=== PATIENT | female | born 1935 | race Caucasian/White ===

== ENCOUNTER 2019-12-04 07:11 | Day surgery (SDC) | payer MEDICARE, BC ==
[2019-12-04] VITALS (12 sets, daily range): BP systolic 140–177; BP diastolic 52–68; PULSE 58–72; TEMP 97.1
[~2019-12-04] VITALS: Ht 165.2 cm; Wt 83.1 kg
[~2019-12-04 07:11] MED LIST: ASPIRIN 81M81 MG/TA2 PO; CELEBREX 200MG200 MG PO; FISH OIL 1000MG1 CAP PO; NEURONTIN800 MG/TAB PO; NORCO 325 MG-7.1 TAB PO; NORVASC 5MG5 MG/TAB PO; PRILOSEC 20MG20 MG PO; TOPROL XL 50MG50 MG PO
[2019-12-04] MEDS ORDERED: SYNTHROID0.075 MG/T PO (07:25)
[2019-12-04] MEDS ORDERED: MULTI VITAMINS1 TAB PO (07:25)
[2019-12-04] MEDS ORDERED: ALTACE 2.5MG T2.5 MG PO (07:27)
[2019-12-04] MEDS ORDERED: TYLENOL 500MG500 MG PO (07:30)
[2019-12-04 07:57] LABS: HEMATOCRIT 37.6 % (37.0-47.0); HEMOGLOBIN 11.8 g/dl (12.5-16.0); MEAN CELL VOLUME 101 fl (80.0-100.0); MEAN CORPUSCULAR HEMOGLOBIN 32 pg (27.0-31.0); MEAN CORPUSCULAR HGB CONC 31 g/dl (33.0-37.0); MEAN PLATELET VOLUME 10.3 fl (7.4-10.4); PLATELET COUNT 166 K/mm3 (130-400); RED BLOOD COUNT 3.71 M/mm3 (4.10-5.30); REDCELL DISTRIBUTION WIDTH-CV 13.2 % (11.5-14.5)
[2019-12-04 08:02] LABS: PROTHROMBIN TIME 11.4 SECONDS (9.7-12.8)
[2019-12-04] MEDS ORDERED: MOBIC 7.5MG7.5 MG PO (08:05)
[2019-12-04 08:09] LABS: CALCIUM 9.3 mg/dL (8.4-10.2); CREATININE, serum 0.88 (0.52-1.25); POTASSIUM 4.5 mmol/L (3.4-5.0)
[2019-12-04] MEDS ORDERED: NORVASC 5MG5 MG/TAB PO (10:48)
== END 2019-12-04 14:49 | disposition home or self-care (01) ==
LOC: COL.CAR 07:11
PROVIDERS: Internal Medicine Cardiovascular Disease
DX: I20.0 Unstable angina (principal); R94.39 Abnormal result of other cardiovascular function study; I47.1 Supraventricular tachycardia; G43.909 Migraine, unspecified, not intractable, without status migrainosus; K21.9 Gastro-esophageal reflux disease without esophagitis; I10 Essential (primary) hypertension; I34.0 Nonrheumatic mitral (valve) insufficiency; Z88.0 Allergy status to penicillin; Z88.8 Allergy status to other drugs, medicaments and biological substances; Z85.038 Personal history of other malignant neoplasm of large intestine
CPT/HCPCS: C1760; C1769; C1894; J1644; J2250; J3010; Q9967

== ENCOUNTER → 2020-03-19 | Outpatient (CLI) | payer MEDICARE, BC ==
[~2020-03-19] MED LIST changes: +ALTACE 2.5MG T2.5 MG PO; +MOBIC 7.5MG7.5 MG PO; +MULTI VITAMINS1 TAB PO; +SYNTHROID0.075 MG/T PO; +TYLENOL 500MG500 MG PO
== END ==
LOC: COL.VAS 14:58
DX: I08.0 Rheumatic disorders of both mitral and aortic valves (principal)

== ENCOUNTER 2020-09-24 17:17 | Inpatient (IN) | payer MEDICARE, BC ==
[~2020-09-24] VITALS: Ht 160 cm; Wt 81.0 kg
[2020-09-24] VITALS (10 sets, daily range): BP systolic 188; BP diastolic 97; PULSE 78; TEMP 97.9; O2SAT 99–100
[2020-09-24 18:33] LABS: BASO % 0.4 % (0.0-2.0); EOS # 0.2 (0.0-0.7); EOS % 3.3 % (0-4.0); GRAN # 2.6 (1.4-6.5); GRAN % 56.2 % (42.2-75.2); HEMOGLOBIN 11.3 g/dl (12.5-16.0); LYMPH # 1.4 (1.2-3.4); LYMPH % 30.4 % (20.0-51.0); MEAN CELL VOLUME 97 fl (80.0-100.0); MEAN CORPUSCULAR HEMOGLOBIN 31 pg (27.0-31.0); MEAN CORPUSCULAR HGB CONC 32 g/dl (33.0-37.0); MEAN PLATELET VOLUME 10.1 fl (7.4-10.4); MONO # 0.4 (0.1-0.6); MONO % 9.5 % (1.7-9.3); PLATELET COUNT 167 K/mm3 (130-400); RED BLOOD COUNT 3.64 M/mm3 (4.10-5.30); REDCELL DISTRIBUTION WIDTH-CV 13.6 % (11.5-14.5)
[2020-09-24 18:34] LABS: HEMATOCRIT 35.2 % (37.0-47.0)
[2020-09-24 18:44] LABS: INR 1.1 (0.8-3.0); PROTHROMBIN TIME 12.1 SECONDS (9.7-12.8)
[2020-09-24 18:58] LABS: ALBUMIN 3.6 gm/dL (3.5-5.0); BILIRUBIN,TOTAL 0.5 mg/dL (0.0-1.0); CALCIUM 9.3 mg/dL (8.4-10.2); CREATININE, serum 0.96 (0.52-1.25); POTASSIUM 4.5 mmol/L (3.4-5.0); TOTAL PROTEIN 6.3 gm/dL (6.4-8.2)
[2020-09-24 19:11] LABS: TROPONIN-I 0.161 ng/mL (0.000-0.035)
[2020-09-24 21:05] LABS: COLLECTION METHOD CLEAN CATCH
[2020-09-24 21:11] LABS: MUCOUS Present /lpf; PH 6 (5-8); SQUAMOUS EPITHELIAL None Seen /hpf; URINE APPEARANCE Clear; URINE BACTERIA None Seen /hpf; URINE BILIRUBIN Negative (NEGATIVE); URINE BLOOD Negative (NEGATIVE); URINE COLOR Straw; URINE GLUCOSE Negative (NEGATIVE); URINE KETONE Negative (NEGATIVE); URINE LEUKOCYTE ESTERASE Negative (NEGATIVE); URINE NITRATE Negative (NEGATIVE); URINE PROTEIN(semi-quant) Negative (NEGATIVE); URINE RBC 0-2 /hpf; URINE UROBILINOGEN Negative (NEGATIVE); URINE WBC 0-2 /hpf
[2020-09-24] MEDS ORDERED: PLAVIX 75MG TAB75 MG PO (22:00)
[2020-09-24] MEDS ORDERED: ALTACE 5MG5 MG PO (22:01)
--- NOTE | 2020-09-24 22:20 | NUR ---
PT ARRIVED TO ICU 07 AT THIS TIME VIA CART WITH ED NURSE. PT ABLE TO TRANSFER FROM THE CART TO ICU BED SBA. PT ORIENTED TO ROOM AND CALL LIGHT SYSTEM. WILL COMPLETE ASSESSMENT. PT STATES SHE CONTINUES TO HAVE CHEST PAIN RATED AT A 4/10 THAT RADIATES TO HER BACK AND SHOULDER. CALL LIGHT WITHIN REACH, WILL CONTINUE TO MONITOR.
[2020-09-25] VITALS (706 sets, daily range): BP systolic 100–209; BP diastolic 52–96; PULSE 60–99; TEMP 97.7–98.1; O2SAT 76–100
[2020-09-25 04:48] LABS: BASO % 0.6 % (0.0-2.0); EOS # 0.1 (0.0-0.7); EOS % 2.9 % (0-4.0); GRAN # 2.8 (1.4-6.5); HEMOGLOBIN 10.7 g/dl (12.5-16.0); LYMPH # 1.5 (1.2-3.4); LYMPH % 30.3 % (20.0-51.0); MEAN CELL VOLUME 96 fl (80.0-100.0); MEAN CORPUSCULAR HEMOGLOBIN 31 pg (27.0-31.0); MEAN CORPUSCULAR HGB CONC 33 g/dl (33.0-37.0); MEAN PLATELET VOLUME 10.5 fl (7.4-10.4); MONO # 0.4 (0.1-0.6); PLATELET COUNT 170 K/mm3 (130-400); RED BLOOD COUNT 3.44 M/mm3 (4.10-5.30); REDCELL DISTRIBUTION WIDTH-CV 13.8 % (11.5-14.5); TROPONIN-I 0.226 ng/mL (0.000-0.035)
[2020-09-25 04:50] LABS: HEMATOCRIT 32.9 % (37.0-47.0)
[2020-09-25 04:54] LABS: CREATININE, serum 0.81 (0.52-1.25); POTASSIUM 4.1 mmol/L (3.4-5.0)
--- NOTE | 2020-09-25 09:58 | NUR ---
Dr. Elliott at bedside speaking with pt.
--- NOTE | 2020-09-25 11:05 | NUR ---
D/T PT'S HEP XA LEVEL AT GOAL, NO TIRATION REQUIRED TO CURRENT HEPARIN RATE. HEPARIN GTT REMAINS AT 8.5 ML/HR.
--- NOTE | 2020-09-25 15:36 | NUR ---
Ambulance Mechanic met with patient to discuss discharge planning. Patient lives alone in [place] and sees Dr. Ramirez for primary care. Patient has medications mailed to her by [facility] and also utilizes [facility] in [place] as needed. Patient has a cane and walker at home. Patient states she is now independent with ADLS after having some Home Health services in her home a while back. Patient could not think of the name of the agency but thought they were out of [place]. Patient has Advance Directives in EMR which designate her son, Vincent (ph#[phone]) as DPOA-HC. Juliane Escoto and Magen Pfeiffer are listed as alternates. Patient states she plans to return home upon discharge. PT has been ordered for patient. SW contacted patient's son, Vincent to review discharge plan. Vincent advised that he has been trying to convince patient to move into an assisted living but that she is not interested in this. SW will continue to follow for discharge needs.
--- NOTE | 2020-09-25 16:23 | NUR ---
PT'S NITRO GTT OFF AT THIS TIME PER DR. RUIZ REQUEST. BP 145/55 HR 76. PT DENIES CP.
--- NOTE | 2020-09-25 18:00 | NUR ---
PT'S HEP XA REMAINS WITHIN GOAL RANGE. NO CHANGE REQUIRED TO CURRENT RATE. HEPARIN GTT REMAINS RUNNING AT 8.5 ML/HR.
--- NOTE | 2020-09-25 18:15 | NUR ---
PT REPORTS SUDDEN ONSET SHARP CP TO MID CHEST. BP ELEVATED AT 188/79, HR 89. CONTACTED RT FOR EKG. DI MERCEDES NOTIFIED OF CP. ORDERS FOR TROPONIN AND EKG GIVEN.
--- NOTE | 2020-09-25 18:33 | NUR ---
CONTACTED PHARMACY TO MIX CARDENE GTT TO BE SENT TO ICU.
--- NOTE | 2020-09-25 20:00 | NUR ---
Assessment complete. Pt is AXO X3, states she has chest pain rated at a 3/10. Breathing is even and unlabored on room air. LH IV and LA IV are infusing free of complications. Pt is resting quielty in the bed at this time and she denies further needs. Call light within reach, will continue to monitor.
[2020-09-26] VITALS (571 sets, daily range): BP systolic 117–200; BP diastolic 46–77; PULSE 61–81; TEMP 98–98.4; O2SAT 68–100
[2020-09-26 06:33] LABS: BASO % 0.7 % (0.0-2.0); EOS # 0.2 (0.0-0.7); GRAN # 2.3 (1.4-6.5); GRAN % 52.7 % (42.2-75.2); HEMOGLOBIN 10.8 g/dl (12.5-16.0); LYMPH # 1.4 (1.2-3.4); LYMPH % 32.5 % (20.0-51.0); MEAN CELL VOLUME 95 fl (80.0-100.0); MEAN CORPUSCULAR HEMOGLOBIN 31 pg (27.0-31.0); MEAN CORPUSCULAR HGB CONC 33 g/dl (33.0-37.0); MEAN PLATELET VOLUME 10.6 fl (7.4-10.4); MONO # 0.4 (0.1-0.6); MONO % 8.9 % (1.7-9.3); PLATELET COUNT 163 K/mm3 (130-400); RED BLOOD COUNT 3.45 M/mm3 (4.10-5.30); REDCELL DISTRIBUTION WIDTH-CV 13.8 % (11.5-14.5)
[2020-09-26 06:37] LABS: HEMATOCRIT 32.9 % (37.0-47.0)
[2020-09-26 06:45] LABS: CREATININE, serum 0.83 (0.52-1.25)
--- NOTE | 2020-09-26 07:00 | NUR ---
RECEIVED REPORT FROM FERN MORENO. PT SLEEPING. CALL LIGHT WITHIN REACH. VSS.
--- NOTE | 2020-09-26 08:30 | NUR ---
SPOKE WITH DR RUIZ ABOUT POC AND PT'S BPs. NEW ORDERS RECEIVED. SEE MAR FOR MED CHANGES.
--- NOTE | 2020-09-26 13:00 | NUR ---
SPOKE WITH DR RUIZ ABOUT PT'S BP HAS INCREASED EVEN AFTER MORNING MEDS GIVEN. PHYSICIAN STATES TO START PT BACK ON CARDENE GTT. SEE MAR.
--- NOTE | 2020-09-26 20:00 | NUR ---
Assessment complete. Pt is AXO X3, states she has a headache rated a 5/10. Breathing is even and unlabored on room air. LA IV infusing free of complications. Pt is resting quietly in the bed watching TV at this time and she denies further needs. Call light within reach, will continue to monitor.
[2020-09-27] VITALS (385 sets, daily range): BP systolic 80–159; BP diastolic 34–73; PULSE 50–77; TEMP 97.7–98.4; O2SAT 69–100
--- NOTE | 2020-09-27 07:00 | NUR ---
RECEIVED REPORT FROM FERN MORENO. PT SLEEPING IN BED. ON RA. VSS. CALL LIGHT WITHIN REACH.
[2020-09-27 08:34] LABS: BASO % 0.8 % (0.0-2.0); EOS # 0.3 (0.0-0.7); EOS % 6.9 % (0-4.0); GRAN # 1.8 (1.4-6.5); GRAN % 47.2 % (42.2-75.2); HEMOGLOBIN 10.9 g/dl (12.5-16.0); LYMPH # 1.3 (1.2-3.4); LYMPH % 33.6 % (20.0-51.0); MEAN CELL VOLUME 96 fl (80.0-100.0); MEAN CORPUSCULAR HEMOGLOBIN 31 pg (27.0-31.0); MEAN CORPUSCULAR HGB CONC 32 g/dl (33.0-37.0); MEAN PLATELET VOLUME 10.4 fl (7.4-10.4); MONO # 0.4 (0.1-0.6); MONO % 11.2 % (1.7-9.3); PLATELET COUNT 166 K/mm3 (130-400); RED BLOOD COUNT 3.53 M/mm3 (4.10-5.30); REDCELL DISTRIBUTION WIDTH-CV 13.9 % (11.5-14.5)
[2020-09-27 08:48] LABS: CALCIUM 9.1 mg/dL (8.4-10.2); CREATININE, serum 0.89 (0.52-1.25); POTASSIUM 4.1 mmol/L (3.4-5.0)
--- NOTE | 2020-09-27 13:01 | NUR ---
NOTIFIED DR RUIZ ABOUT PT'S HR DROPPING TO 49, DISCUSSED MEDS, NO NEW CHANGES. PHYSICIAN STATES TO CONTINUE TO MONITOR.
--- NOTE | 2020-09-27 13:10 | NUR ---
DR RUIZ AT BEDSIDE FOR ASSESSMENT. DR RUIZ NOTED TO RN THAT PCR COVID TEST IS NEGATIVE AND PT CAN COME OFF PRECAUTIONS AT THIS TIME. PT UPDATED.
--- NOTE | 2020-09-27 20:00 | NUR ---
Assessment complete. Pt is AXO X3. Breathing is even and unlabored on room air. LA INT and LH INT both flush easily and remain free of complications. Pt is assisted to the restroom and helped back into bed at this time and she denies further needs. Call light within reach, will continue to monitor.
[2020-09-28] VITALS: BP 124/40; PULSE 60; TEMP 98
[2020-09-28 04:00] VITALS: BP 122/53; PULSE 58; TEMP 98.1
[2020-09-28 05:55] LABS: BASO % 0.5 % (0.0-2.0); EOS # 0.3 (0.0-0.7); EOS % 7.1 % (0-4.0); GRAN % 46.7 % (42.2-75.2); HEMOGLOBIN 11.1 g/dl (12.5-16.0); LYMPH # 1.6 (1.2-3.4); LYMPH % 35.6 % (20.0-51.0); MEAN CELL VOLUME 96 fl (80.0-100.0); MEAN CORPUSCULAR HEMOGLOBIN 31 pg (27.0-31.0); MEAN CORPUSCULAR HGB CONC 32 g/dl (33.0-37.0); MEAN PLATELET VOLUME 10.2 fl (7.4-10.4); MONO # 0.4 (0.1-0.6); MONO % 9.9 % (1.7-9.3); PLATELET COUNT 173 K/mm3 (130-400); REDCELL DISTRIBUTION WIDTH-CV 13.9 % (11.5-14.5)
[2020-09-28 05:59] LABS: HEMATOCRIT 34.6 % (37.0-47.0)
[2020-09-28 06:09] LABS: CALCIUM 9.3 mg/dL (8.4-10.2); CREATININE, serum 0.92 (0.52-1.25); POTASSIUM 4.2 mmol/L (3.4-5.0)
[2020-09-28 08:00] VITALS: BP 168/75; PULSE 60; TEMP 98
--- NOTE | 2020-09-28 10:02 | NUR ---
Initial visit; Patient thanked Lotteries Agent for looking in on her and for keeping her in Lotter[employer] Agent's prayers. Patient is hoping to go home soon.
--- NOTE | 2020-09-28 10:19 | NUR ---
Mail Handler Assistant collaborated with TERESO Varner who is recommending Home Health services for patient. SW followed up with patient and provided Medicare.gov list of HH agencies that serve [place]. Patient states she had a provider out of [place] that she was private paying for. Patient states she did not like the PT provided by the [place] provider. SUSAN will send referral once patient makes selection of HH agency.
--- NOTE | 2020-09-28 10:56 | NUR ---
Patient selected [facility]. SW faxed referral.
--- NOTE | 2020-09-28 11:57 | NUR ---
prayed with patient, no other needs right now.
[2020-09-28 12:00] VITALS: BP 139/57; PULSE 58; TEMP 98.4
--- NOTE | 2020-09-28 12:21 | NUR ---
Cutter Operator Helper was contacted by Jud at [facility] and they do not serve [place]. SUSAN followed up with patient who would like to have referral sent to [facility]. SW faxed referral.
[2020-09-28] MEDS ORDERED: MONODOX100 PO (12:51)
[2020-09-28] MEDS ORDERED: OMNICEF 300MG300 MG PO (12:51)
[2020-09-28] MEDS ORDERED: ALTACE 10MG TAB10 MG PO (12:53)
[2020-09-28] MEDS ORDERED: PROCARDIA20 MG PO (13:09)
--- NOTE | 2020-09-28 13:56 | NUR ---
Marine Engineering Teacher was notified by Hospitalist that patient is going to be discharged home today. SUSAN contacted Allyson at [facility] and they will accept patient for services. SUSAN faxed discharge orders. SUSAN met with patient who is in agreement with discharge home with [facility]. Patient states her son Vincent is going to pick her up and will be staying with her a couple days. No additional needs at this time.
--- NOTE | 2020-09-28 15:20 | NUR ---
PT HELPED INTO STREET CLOTHES AND PLACED IN WC AFTER DC PAPERWORK GIVEN. A 60DAY SUPPLY OF PROCARDIA XL GIVEN TO PT UNTIL HOME RX IS ABLE TO WORK WITH INSURANCE TO GET AT HOME. ALL PERSONAL BELONGINGS SENT HOME WITH PT. PT SENT HOME WITH SON XANDER.
== END 2020-09-28 15:20 | disposition home health service (06) | DRG 280 ==
LOC: COL.ER 17:17 → ICU 21:10
PROVIDERS: Nurse Practitioner Primary Care; Physician Assistant; Student in an Organized Health Care Education/Training Program; ADMIT Hospitalist
DX: I16.1 Hypertensive emergency (principal); I21.A1 Myocardial infarction type 2; J18.9 Pneumonia, unspecified organism; E03.9 Hypothyroidism, unspecified; I10 Essential (primary) hypertension; K21.9 Gastro-esophageal reflux disease without esophagitis; I08.0 Rheumatic disorders of both mitral and aortic valves; I69.912 Visuospatial deficit and spatial neglect following unspecified cerebrovascular disease; G62.9 Polyneuropathy, unspecified; Z20.822 Contact with and (suspected) exposure to COVID-19; S01.311A Laceration without foreign body of right ear, initial encounter; G43.909 Migraine, unspecified, not intractable, without status migrainosus; X58.XXXA Exposure to other specified factors, initial encounter; R79.89 Other specified abnormal findings of blood chemistry; Z79.02 Long term (current) use of antithrombotics/antiplatelets; Z79.82 Long term (current) use of aspirin; Z79.891 Long term (current) use of opiate analgesic; Z95.818 Presence of other cardiac implants and grafts; Z90.710 Acquired absence of both cervix and uterus; Z88.0 Allergy status to penicillin; Z85.3 Personal history of malignant neoplasm of breast; Z85.038 Personal history of other malignant neoplasm of large intestine; Z88.8 Allergy status to other drugs, medicaments and biological substances
CPT/HCPCS: 99223-AI; 99233-AI; 99239; J0696; J1644; J2270; J7050; Q9967

== ENCOUNTER 2021-04-09 14:09 | Day surgery (SDC) | payer MEDICARE, BC ==
[~2021-04-09] VITALS: Ht 160 cm; Wt 74.8 kg
[~2021-04-09 14:09] MED LIST changes: +ALTACE 10MG TAB10 MG PO; +ALTACE 5MG5 MG PO; +MONODOX100 PO; +OMNICEF 300MG300 MG PO; +PLAVIX 75MG TAB75 MG PO; +PROCARDIA20 MG PO
[2021-04-09 14:57] LABS: INR 1.1 (0.8-3.0); PROTHROMBIN TIME 12.5 SECONDS (9.7-12.8)
[2021-04-09 14:58] LABS: CALCIUM 9.5 mg/dL (8.4-10.2); CREATININE, serum 1.29 (0.52-1.25); POTASSIUM 4.2 mmol/L (3.4-5.0)
[2021-04-09 15:05] VITALS: BP 116/68; PULSE 60; TEMP 98.6
[2021-04-09 15:09] LABS: BASO % 0.8 % (0.0-2.0); EOS # 0.1 (0.0-0.7); EOS % 2.5 % (0-4.0); GRAN # 2.4 (1.4-6.5); LYMPH # 1.7 (1.2-3.4); MEAN CELL VOLUME 100 fl (80.0-100.0); MEAN CORPUSCULAR HGB CONC 31 g/dl (33.0-37.0); MEAN PLATELET VOLUME 10.1 fl (7.4-10.4); MONO # 0.5 (0.1-0.6); MONO % 10.5 % (1.7-9.3); PLATELET COUNT 212 K/mm3 (130-400); RED BLOOD COUNT 2.87 M/mm3 (4.10-5.30); REDCELL DISTRIBUTION WIDTH-CV 14.6 % (11.5-14.5)
[2021-04-09 15:13] LABS: HEMATOCRIT 28.8 % (37.0-47.0); HEMOGLOBIN 8.8 g/dl (12.5-16.0); MEAN CORPUSCULAR HEMOGLOBIN 31 pg (27.0-31.0)
[2021-04-09] MEDS ORDERED: EPA FISH OIL1 SGL PO (15:27)
[2021-04-09] MEDS ORDERED: VITAMINC1000TA PO (15:27)
[2021-04-09] MEDS ORDERED: PROTONIX 40MG T40 MG PO (15:27)
[2021-04-09] MEDS ORDERED: VITAMIN D31000 I1 PO (15:28)
[2021-04-09] MEDS ORDERED: LIPITOR 10MG10 MG PO (15:28)
[2021-04-09] MEDS ORDERED: COLACE 100100 MG/CAP PO (15:28)
[2021-04-09] MEDS ORDERED: PROAMATINE10 MG PO (15:29)
[2021-04-09] MEDS ORDERED: NEURONTIN600 MG/TAB PO (15:29)
[2021-04-09] MEDS ORDERED: LINZESS290CAP PO (15:29)
[2021-04-09] MEDS ORDERED: SYNTHROID 0.0.025 MG PO (15:29)
[2021-04-09 15:48] VITALS: BP 199/77; PULSE 74
[2021-04-09 17:50] VITALS: BP 180/54; PULSE 64
--- NOTE | 2021-04-09 17:57 | NUR ---
PT AOX4, ARRIVED TO FLOOR, PT ATTACHED TO VITALS CART, REPORTS PAIN TO PACER SITE 03/27, ICE PACK APPLIED. SON AT BEDSIDE, ASSESSMENT PERFORMED, MEDICATIONS REVIEWED, NO OTHER NEEDS
[2021-04-09 17:58] VITALS: BP 198/47; PULSE 65
[2021-04-09 18:15] VITALS: BP 186/55; PULSE 66
--- NOTE | 2021-04-09 18:15 | NUR ---
DR. HAYNES AWARE OF HIGH BP, BP THIS HIGH DURING PACER PROCEDURE. NO ORDERS AT THIS TIME.
[2021-04-09 19:45] VITALS: BP 139/90; PULSE 64
--- NOTE | 2021-04-09 23:16 | NUR ---
Shift assessment completed. Patient alert and oriented. Patient's left upper chest pace maker site dressing C/D/I. Patient reports some tenderness to pace maker site. Left arm remains in sling and ice-pack in place. PRN Tylenol given for pain. Assisted patient to the bathroom to void. Patient denies chest pain, SOB, N/V, or headache. Call light within reach. Will continue to monitor.
[2021-04-10 00:25] VITALS: BP 147/51; PULSE 65; TEMP 97.6
[2021-04-10 05:00] VITALS: BP 141/41; PULSE 61; TEMP 97.2
[2021-04-10 07:53] LABS: CALCIUM 8.8 mg/dL (8.4-10.2); CREATININE, serum 0.96 (0.52-1.25); POTASSIUM 4.2 mmol/L (3.4-5.0)
[2021-04-10 07:55] LABS: BASO % 0.7 % (0.0-2.0); EOS # 0.2 (0.0-0.7); EOS % 4.4 % (0-4.0); GRAN # 2.2 (1.4-6.5); GRAN % 53.9 % (42.2-75.2); LYMPH # 1.2 (1.2-3.4); LYMPH % 29.4 % (20.0-51.0); MEAN CELL VOLUME 100 fl (80.0-100.0); MEAN CORPUSCULAR HGB CONC 31 g/dl (33.0-37.0); MEAN PLATELET VOLUME 10.6 fl (7.4-10.4); MONO # 0.5 (0.1-0.6); MONO % 11.4 % (1.7-9.3); PLATELET COUNT 189 K/mm3 (130-400); RED BLOOD COUNT 2.71 M/mm3 (4.10-5.30); REDCELL DISTRIBUTION WIDTH-CV 14.5 % (11.5-14.5)
[2021-04-10 08:00] LABS: HEMATOCRIT 27.2 % (37.0-47.0); HEMOGLOBIN 8.3 g/dl (12.5-16.0); MEAN CORPUSCULAR HEMOGLOBIN 31 pg (27.0-31.0)
[2021-04-10 09:13] VITALS: BP 144/43; PULSE 71; TEMP 98.4
[2021-04-10 11:01] VITALS: BP 152/47; PULSE 63; TEMP 98.3
[2021-04-10] MEDS ORDERED: CLEOCIN HC150 MG/CAP PO (12:12)
--- NOTE | 2021-04-10 12:40 | NUR ---
Plan is to return home with [facility] out of [place]. SW met with patient about care at home and DC> Patient reports that she resides in [facility]. Patient reports that she has two home health support. One is a personal HHS. Patient reports that she resides alone and wants to remain independent and in her own home. Patient reports that she has two sons however the eldest Vincent is her POA. Patient reports that she has a pacemake put in. Patient reports her PCP is Dr. Orestes Ramirez, Specialist are Dr. Goodson for [facility]. Patient indicated that she uses [facility] and recieves mail order scripts through [facility]. Patient reports that she does not have any pain at this time but wants it to be manageable. Patient and SW discussed options for meals through insurance [employer]. SW educated patient on those supports. Patient report the use of a sit to stand walker, but no other DME services. Denies any difficulty with driving but the youngest son will come for transport. SW educated on support with case management. BERONICA.
--- NOTE | 2021-04-10 14:14 | NUR ---
PT INT DISCONTINUED, PACEMAKER SITE CLEAN AND DRY AND INTACT, NO GAUZE OR DRESSING.PT REPORTS MILD TENDERNESS TO SITE. PT VERBALIZES UNDERSTANDING OF SITE CARE.PT ESCORTED OUT OF [facility] VIA MEDICAL STAFF AT 1350, PT TRANSPORTS VIA WHEELCHAIR WITH ALL BELONGINGS ON HAND. PT'S SON AND NURSE HELPED PT INTO VEHICLE. ALL QUESTIONS BY THE SON WERE ANSWERED.
[2021-04-12] MEDS ORDERED: PLAVIX 75MG TAB75 MG PO (05:24)
[2021-04-12] MEDS ORDERED: ALTACE 10MG TAB10 MG PO ×4 (05:24→14:23)
[2021-04-12] MEDS ORDERED: CLEOCIN HC150 MG/CAP PO (08:54)
[2021-04-12] MEDS ORDERED: IMDUR 30MG30 MG/TAB PO (14:09)
[2021-04-12] MEDS ORDERED: ASPIRIN E.C. 8181 MG PO (14:10)
== END 2021-04-10 13:50 | disposition home or self-care (01) ==
LOC: COL.CAR 14:09 → MEDICAL 18:01 → COL.CAR 04-10 13:50
PROVIDERS: Internal Medicine Cardiovascular Disease
DX: I49.5 Sick sinus syndrome (principal); R42 Dizziness and giddiness; R55 Syncope and collapse; Z95.0 Presence of cardiac pacemaker
CPT/HCPCS: OP; C1785; C1894; C1898; J2250; J3010; J3370; J7030; J7050; Q9967

== ENCOUNTER 2021-04-14 15:07 | Emergency (ER) | payer MEDICARE, BC ==
[~2021-04-14] VITALS: Ht 160 cm; Wt 75.0 kg
[~2021-04-14 15:07] MED LIST changes: +ASPIRIN E.C. 8181 MG PO; +CLEOCIN HC150 MG/CAP PO; +COLACE 100100 MG/CAP PO; +EPA FISH OIL1 SGL PO; +IMDUR 30MG30 MG/TAB PO; +LINZESS290CAP PO; +LIPITOR 10MG10 MG PO; +NEURONTIN600 MG/TAB PO; +PROAMATINE10 MG PO; +PROTONIX 40MG T40 MG PO; +SYNTHROID 0.0.025 MG PO; +VITAMIN D31000 I1 PO; +VITAMINC1000TA PO
[2021-04-14 15:45] LABS: BASO % 0.5 % (0.0-2.0); EOS # 0.2 (0.0-0.7); EOS % 3.6 % (0-4.0); GRAN # 3.3 (1.4-6.5); LYMPH # 1.6 (1.2-3.4); LYMPH % 28.4 % (20.0-51.0); MEAN CELL VOLUME 102 fl (80.0-100.0); MEAN CORPUSCULAR HGB CONC 30 g/dl (33.0-37.0); MEAN PLATELET VOLUME 10.4 fl (7.4-10.4); MONO # 0.5 (0.1-0.6); MONO % 8.1 % (1.7-9.3); PLATELET COUNT 184 K/mm3 (130-400); REDCELL DISTRIBUTION WIDTH-CV 14.5 % (11.5-14.5)
[2021-04-14 15:48] LABS: HEMATOCRIT 28.6 % (37.0-47.0); HEMOGLOBIN 8.7 g/dl (12.5-16.0); MEAN CORPUSCULAR HEMOGLOBIN 31 pg (27.0-31.0)
[2021-04-14 15:49] LABS: ALBUMIN 3.6 gm/dL (3.5-5.0); BILIRUBIN,TOTAL 0.4 mg/dL (0.0-1.0); CALCIUM 9.3 mg/dL (8.4-10.2); CREATININE, serum 1.15 (0.52-1.25); POTASSIUM 4.6 mmol/L (3.4-5.0); TOTAL PROTEIN 6.5 gm/dL (6.4-8.2)
[2021-04-14 16:00] LABS: TROPONIN-I 0.012 ng/mL (0.000-0.035)
[2021-04-14 16:56] LABS: INR 1.1 (0.8-3.0); PROTHROMBIN TIME 11.9 SECONDS (9.7-12.8)
[2021-04-14 20:47] VITALS: BP 160/70; PULSE 84; TEMP 97.8
== END 2021-04-14 20:47 | disposition home or self-care (01) ==
LOC: COL.ER 15:07
PROVIDERS: Physician Assistant
DX: R07.9 Chest pain, unspecified (principal); N18.30 Chronic kidney disease, stage 3 unspecified; E03.9 Hypothyroidism, unspecified; K21.9 Gastro-esophageal reflux disease without esophagitis; I25.2 Old myocardial infarction; Z95.0 Presence of cardiac pacemaker; Z86.73 Personal history of transient ischemic attack (TIA), and cerebral infarction without residual deficits; Z79.02 Long term (current) use of antithrombotics/antiplatelets; Z79.899 Other long term (current) drug therapy; Z79.82 Long term (current) use of aspirin; Z79.890 Hormone replacement therapy
CPT/HCPCS: J7030

== ENCOUNTER 2021-05-26 14:13 | Emergency (ER) | payer MEDICARE, BC ==
[~2021-05-26] VITALS: Ht 160 cm; Wt 75.0 kg
[2021-05-26 14:26] VITALS: TEMP 98.7
[2021-05-26 15:04] LABS: ALANINE AMINOTRANSFERASE 13 U/L (4-34); ALBUMIN 3.8 gm/dL (3.5-5.0); ALKALINE PHOSPHATASE 95 U/L (50-136); ANION GAP 4 mmol/L (7-16); AST,SGOT 33 U/L (15-37); BILIRUBIN,TOTAL 0.6 mg/dL (0.0-1.0); BLOOD UREA NITROGEN 19 mg/dL (7-17); CALCIUM 9.3 mg/dL (8.4-10.2); CARBON DIOXIDE 27 mmol/L (22-30); CHLORIDE 106 mmol/L (98-107); CREATININE, serum 0.96 (0.52-1.25); GLUCOSE 166 mg/dL (74-106); SODIUM 137 mmol/L (137-145); TOTAL PROTEIN 6.9 gm/dL (6.4-8.2)
[2021-05-26 15:18] LABS: TROPONIN-I < 0.012 ng/mL (0.000-0.035)
[2021-05-26 16:50] LABS: INR 1.2 (0.8-3.0); PROTHROMBIN TIME 13.4 SECONDS (9.7-12.8)
[2021-05-26 16:53] LABS: PARTIAL THROMBOPLASTIN TIME 25.2 SECONDS (26.0-37.0)
[2021-05-26 17:04] LABS: BASO % 0.6 % (0.0-2.0); EOS # 0.1 (0.0-0.7); EOS % 2.3 % (0-4.0); GRAN # 2.9 (1.4-6.5); GRAN % 59.4 % (42.2-75.2); LYMPH # 1.3 (1.2-3.4); LYMPH % 27.9 % (20.0-51.0); MEAN CELL VOLUME 99 fl (80.0-100.0); MEAN CORPUSCULAR HGB CONC 31 g/dl (33.0-37.0); MEAN PLATELET VOLUME 10.2 fl (7.4-10.4); MONO # 0.5 (0.1-0.6); MONO % 9.8 % (1.7-9.3); PLATELET COUNT 159 K/mm3 (130-400); RED BLOOD COUNT 3.05 M/mm3 (4.10-5.30); REDCELL DISTRIBUTION WIDTH-CV 14.4 % (11.5-14.5)
[2021-05-26 17:05] LABS: HEMATOCRIT 30.1 % (37.0-47.0); HEMOGLOBIN 9.2 g/dl (12.5-16.0); MEAN CORPUSCULAR HEMOGLOBIN 30 pg (27.0-31.0)
[2021-05-26 17:49] VITALS: PULSE 78
[2021-05-26 18:20] VITALS: BP 136/63
== END 2021-05-26 18:21 | disposition home or self-care (01) ==
LOC: COL.ER 14:13
PROVIDERS: Family Medicine
DX: I24.9 Acute ischemic heart disease, unspecified (principal); I25.10 Atherosclerotic heart disease of native coronary artery without angina pectoris; I12.9 Hypertensive chronic kidney disease with stage 1 through stage 4 chronic kidney disease, or unspecified chronic kidney disease; N18.30 Chronic kidney disease, stage 3 unspecified; I21.4 Non-ST elevation (NSTEMI) myocardial infarction; I49.5 Sick sinus syndrome; Z86.73 Personal history of transient ischemic attack (TIA), and cerebral infarction without residual deficits; Z95.0 Presence of cardiac pacemaker; Z20.822 Contact with and (suspected) exposure to COVID-19; Z79.82 Long term (current) use of aspirin; Z79.02 Long term (current) use of antithrombotics/antiplatelets; Z79.899 Other long term (current) drug therapy
CPT/HCPCS: J1885; J3010; J7030